=== PATIENT | female | born 1980 ===

== ENCOUNTER 2022-07-20 06:17 | Day surgery (SDC) | payer OTHER ==
[~2022-07-20] VITALS: Ht 160 cm; Wt 77.1 kg
== END 2022-07-20 14:10 | disposition home or self-care (01) ==
LOC: CIR.AMB 06:17 → U 06:17 → CIR.AMB 07:00
PROVIDERS: ATTEND Surgery
DX: N64.89 Other specified disorders of breast (principal); N60.81 Other benign mammary dysplasias of right breast; Z20.822 Contact with and (suspected) exposure to COVID-19; Z86.16 Personal history of COVID-19; E11.9 Type 2 diabetes mellitus without complications
CPT/HCPCS: 19301; 19281; L8699